=== PATIENT | female | born 1945 | race Caucasian/White ===

== ENCOUNTER → 2018-05-23 15:06 | Outpatient (CLI) | payer MEDICARE, OTHER, SELFPAY | PROVIDERS: Visit Provider Internal Medicine | DX: Z13.820 Encounter for screening for osteoporosis (principal); M85.852 Other specified disorders of bone density and structure, left thigh; Z78.0 Asymptomatic menopausal state | CPT/HCPCS: 77080 ==

== ENCOUNTER → 2018-12-11 14:14 | Outpatient (CLI) | payer MEDICARE, OTHER, SELFPAY ==
--- NOTE | 2018-12-11 | DI.US.S_ITS ---
PROCEDURE: US PELVIC COMPLETE INDICATIONS: UNSPECIFIED OVARIAN CYST, UNSPECIFIED SIDE TECHNIQUE: Real-time scanning was performed of the pelvic organs, with image documentation. Additional endovaginal scanning was necessary due to incomplete visualization of the adnexal and endometrial structures by transabdominal scanning. COMPARISON: None. FINDINGS: Transabdominal scanning: Limited scanning through the kidneys shows no hydronephrosis. No pathologic free abdominal or pelvic fluid. Endovaginal scanning: Uterus: Surgically absent. Ovaries: Right ovary is enlarged and multicystic measuring 4.7 x 3.3 x 3.0 cm. There is wall irregularity and mural nodularity. Doppler assessment demonstrates no internal flow. Left ovary is enlarged measuring 4.0 x 4.0 x 3.2 cm and also multicystic in appearance with mild wall irregularity and knee largest cystic component measuring 3.9 cm. Doppler assessment demonstrates no internal flow. IMPRESSION: Enlarged multicystic ovaries with complex appearance. Underlying neoplasms such as cystadenoma or cystadenocarcinoma cannot be excluded and gynecologic consultation is recommended. If indicated, pre and post contrast gynecologic protocol MRI could be performed for further assessment. Dictated by: Darien ESTRADA Interpreted: Arleen Melchor MD on 12/11/2018 at 16:01 Approved by: Arleen Melchor M.D. on 12/11/2018 at 17:07
== END ==
PROVIDERS: PCP Internal Medicine; Visit Provider Physician Assistant Medical
DX: R10.2 Pelvic and perineal pain (principal); N83.292 Other ovarian cyst, left side; N83.291 Other ovarian cyst, right side; N83.8 Other noninflammatory disorders of ovary, fallopian tube and broad ligament
CPT/HCPCS: 76830; 76856

== ENCOUNTER → 2018-12-12 14:51 | Outpatient (CLI) | payer MEDICARE, OTHER, SELFPAY ==
[2018-12-12 16:31] LABS: Cancer Antigen 125 8 U/mL (0-35)
[2018-12-15 18:10] LABS: Human HE4 Antigen 70 pmol/L
== END ==
PROVIDERS: PCP Internal Medicine; Visit Provider Obstetrics & Gynecology
DX: N83.209 Unspecified ovarian cyst, unspecified side (principal); R19.09 Other intra-abdominal and pelvic swelling, mass and lump
CPT/HCPCS: 36415; 86304; 86305

== ENCOUNTER 2018-12-27 18:07 | Inpatient (IN) | payer MEDICARE, OTHER, SELFPAY ==
[2018-12-27] VITALS (20 sets, daily range): BP systolic 115–155; BP diastolic 57–89; PULSE 70–87; RESP 9–18; TEMP 36.2–37.1; O2SAT 92–100; BMI 25.2
--- NOTE | 2018-12-27 | PATH_ITS ---
[facility] Accession Number: [id number] . 01 Material submitted: . PART A: fallopian tube - LEFT FALLOPIAN TUBE AND OVARY PART B: fallopian tube - RIGHT FALLOPIAN TUBE AND OVARY . 02 Diagnosis: A. 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 Left fallopian tube with no significiant histomorphologic abnormality. . B. Right Fallopian Tube and Ovary, Right Salpingo-oophorectomy: Benign serous cystadenofibroma (5.1 cm in greatest dimension) of the ovary. Right fallopian tube with no significant histomorphologic abnormality. [facility] 12/31/2018 1708 Local . 02 Electronically signed: . Milagros Monterroso MD, Pathologist NPI- [id number] . 01 Gross description: . (A) Received in formalin, labeled left fallopian tube + ovary, is an intact cystic ovary (4.7 x 4.5 x 3.0 cm) and a detached fimbriated fallopian tube (length-2.3 cm, diameter-0.3 cm). The ovary has yellow-pink smooth shiny serosa with a multilocular cut surface. The cavities (0.2 cm-3.5 cm) contain clear yellow fluid. A minimal amount of normal ovarian parenchyma is identified. The fallopian tube has dark maroon smooth shiny serosa and a barakat unremarkable lumen. Section code: (A1, A2) ovary, healthcare representative serial section; (A3) fallopian tube, trisected, entirely submitted; (A4) fimbria, bivalved, entirely submitted. (B) Received in formalin, labeled right fallopian tube + ovary, is an opened cystic ovary (5.1 x 1.8 x 1.6 cm) and a fimbriated fallopian tube segment (length-1.1 cm, diameter-0.4 cm). The ovary has martinez-yellow smooth shiny flat serosa and a multilocular focally solid cut surface. The cavities (0.1 cm-1.5 cm) contain clear yellow fluid and gelatinous material. A minimal amount of normal ovarian parenchyma is identified. The fallopian tube has barakat smooth shiny serosa and a barakat unremarkable lumen. Section code: (B1, B2) ovary, healthcare representative serial sections; (B3) fallopian tube with fimbria, bivalved, entirely submitted. ([id number]) /MRV 12/28/2018 1040 Local . 02 Pathologist provided ICD-10: D27.0, D27.1 . 02 CPT . 713627, [id number] Performed at: 01 [facility] [address] [id number] MD Grzegorz Mckenzie MD Phone: [phone] Performed at: 02 [facility] [address] [place] [id number] MD Trudy Ocasio MD Phone: [phone]
[2018-12-27] MEDS: LACTATED RINGERS 1,000 ML 42 ML IV ×2 (10:46→16:23)
--- NOTE | 2018-12-27 12:45 | PM.HP.1 ---
History of Present Illness History of Present Illness Date Patient Seen: 12/27/18 Time Patient Seen: 12:45 Chief complaint: [id number] Narrative: Patient is a 73-year-old with bilateral ovarian cysts. She is here for laparoscopic bilateral salpingo oophorectomy Patient History Medical History (Updated 12/26/18 @ 12:33 by Zoë Park RN) GERD (gastroesophageal reflux disease) (Acute) Hypercholesterolemia (Acute) Hypertension (Acute) Hypertrophic cardiomyopathy (Acute) Multiple developmental ovarian cysts (Acute) Surgical History (Updated 12/16/18 @ 14:56 by Staci Moreno MD) Status post abdominal hysterectomy (Acute) Status post adenoidectomy (Acute) Status post cholecystectomy (Acute) Status post laparotomy (Acute) Status post tonsillectomy (Acute) Social History household members: spouse Smoking Status: Never smoker Family & Social History Social History: household members spouse Tobacco & Substance use: Smoking Status Never smoker Meds Home Medications and Allergies Home Medications Medication Instructions Recorded Confirmed Type atorvastatin 20 mg tablet 20 mg PO DAILY 12/13/18 12/27/18 History losartan 50 mg tablet 50 mg PO BID tab 12/13/18 12/27/18 History metoprolol succinate 50 mg capsule 50 mg PO BID each 12/13/18 12/27/18 History sprinkle, ext. release 24 hr omeprazole 20 mg capsule,delayed 20 mg PO DAILY PRN 12/13/18 12/27/18 History release ranitidine HCl 150 mg tablet 150 mg PO BEDTIME PRN 12/13/18 12/26/18 History aspirin [Aspir-81] 81 mg PO DAILY 12/27/18 12/27/18 History Allergies Allergy/AdvReac Type Severity Reaction Status Date / Time amoxicillin AdvReac Sweating, Verified 12/13/18 15:21 diarrhea, vomiting Penicillins AdvReac Sweating, Verified 12/13/18 15:21 diarrhea, vomiting Sulfa (Sulfonamide AdvReac Sweating, Verified 12/13/18 15:21 Antibiotics) diarrhea, vomiting Exam Vital Signs (past 8 hours): - 12/27/18 10:30 Temperature 97.1 F L Pulse Rate 86 Respiratory Rate 16 Blood Pressure 150/89 H Pulse Oximetry 100 Oxygen Delivery Method Room Air Narrative Exam Narrative: HEENT: No thyromegaly, no anterior cervical or supraclavicular lymphadenopathy. Lungs:Clear to auscultation bilaterally, no wheezes. Cardiovascular: Regular rate and rhythm, no murmurs, rubs, or gallops. Abdomen: Well-healed right upper quadrant laparoscopy and laparotomy scars. No hepatosplenomegaly. No masses palpable. External genitalia: Atrophic Vagina: Atrophic Cervix: Absent Bimanual exam: Bilateral adnexal fullness and tenderness. Rectal: No masses. Assessment & Plan Assessment & Plan narrative: Assessment: 73-year-old with bilateral ovarian masses Normal CA-125 and HE-4 Plan: Laparoscopic bilateral salpingo oophorectomy The risks, benefits, and alternatives to the procedure were explained to the patient. The risks including bleeding, infection, injury to the bowel, bladder, or ureters. She also understands that there is possibility of an open procedure. A full par Q was held and consent form was signed. Time Spent With Patient Time with patient: 15-24 minutes
--- NOTE | 2018-12-27 12:48 | PM.PREOP ---
Pre-operative Note Interval Note History & Physical reviewed/Exam performed by Physician: Yes Changes to H&P: No
--- NOTE | 2018-12-27 13:37 | SUR.OPER ---
Lithotomy on padded OR bed, head on pillow, arms secured on padded arm boards at <90 degrees abduction. Legs secured in padded yellow fins stirrups.
[2018-12-27] MEDS: BUPIVACAINE 0.5% W/ EPI (PF) VIAL 30 ML INJ (13:45)
[2018-12-27] MEDS: ONDANSETRON 4 MG/2 ML INJ IV (15:39)
[2018-12-27] MEDS: HYDROMORPHONE 2 MG INJ 0.5 MG IV ×2 (15:41→15:49)
[2018-12-27] MEDS: fentaNYL 100 MCG/2 ML INJ 50 MCG IV (15:46)
--- NOTE | 2018-12-27 16:20 | SUR.PHASEI ---
REPORT CALLED TO SYD FRANKS ON ACUTE CARE FLOOR. PT IN STABLE CONDITION, VSS. IV SITE CLEAR AND INFUSING WITHOUT DIFFICULTLY. PT DENIES ANY PAIN OR NAUSEA AT THIS TIME. PT WILL BE TRANSFERRED TO ACUTE CARE FLOOR AT THIS TIME.
[2018-12-27] MEDS: CEFAZOLIN 2 GM/100 ML FROZ.PIGGY IV (16:24)
--- NOTE | 2018-12-27 16:24 | SUR.PHASEI ---
VERBAL ORDER RECEIVED FROM DR. SHOEMAKER TO GIVE PT 2GRAMS IV ANCEF. REVIEWED PT ALLERGIES LISTED WITH DR. SHOEMAKER. PER DR. SHOEMAKER OK TO CONTINUE WITH CURRENT PLAN TO GIVE ANCEF SHE ORDERED.
--- NOTE | 2018-12-27 16:37 | SUR.PHASEI ---
PT TRANSFERRED TO ACUTE CARE FLOOR IN STABLE CONDITION. PT ALERT AND TALKING TO RN DURING TRANSPORT. PT SPOUSE AT BEDSIDE UPON ARRIVAL TO ROOM. BEDSIDE REPORT GIVEN TO SYD FRANKS AT THAT TIME. TRANSFERRED CARE OF PT TO SYD FRANKS.
--- NOTE | 2018-12-27 16:47 | PC.NURSE ---
Julianna shift note: Patient admitted to room 210 S/P Bilateral S & O procedure scheduled by Dr. Moreno. Awake, alert, and pleasant. Received on RA. and friend at bedside providing supportive care. Oriented to room, environment and plan of care.
[2018-12-27] MEDS: LACTATED RINGERS 1,000 ML 100 ML IV (17:41)
[2018-12-27] MEDS: LOSARTAN 50 MG TABLET PO (20:53)
[2018-12-27] MEDS: DOCUSATE 250 MG CAPSULE PO (20:53)
[2018-12-27] MEDS: METOPROLOL ER 50 MG TABLET PO (20:54)
--- NOTE | 2018-12-27 23:46 | PC.NURSE ---
Julianna shift note: Patient output 150 ml this shift, notified Dr. Aldana. New order obtain for 1L bolus NS. Diet advanced to Regular.
[2018-12-28] MEDS: SODIUM CHLORIDE 0.9% 1,000 ML 1000 ML IV (00:53)
[2018-12-28 00:55] VITALS: BP 123/74; PULSE 77; RESP 16; TEMP 36.4; O2SAT 96
[2018-12-28] MEDS: LACTATED RINGERS 1,000 ML 100 ML IV (01:54)
[2018-12-28 05:15] VITALS: BP 128/71; PULSE 76; RESP 16; TEMP 36.8; O2SAT 94
[2018-12-28 06:00] LABS: Add Manual Diff / Slide Review NO; Basophils Absolute Auto 0 /uL (0-100); Eosinophils Absolute Auto 0 /uL (0-450); Hematocrit 33.3 % (36-46); Hemoglobin 11.9 g/dL (12.0-16.0); Lymphocytes Absolute Auto 1000 /uL (1100-4500); Lymphocytes Percent Auto 9.2 % (25-40); Mean Corpuscular HGB Conc 35.6 % (30-36); Mean Corpuscular Hemoglobin 30.4 PG (26-34); Mean Corpuscular Volume 85.1 fL (80-100); Monocytes Absolute Auto 600 /uL (0-900); Monocytes Percent Auto 5.3 % (3-14); Neutrophils Absolute Auto 9300 /uL (1500-7000); Neutrophils Percent Auto 85.5 % (50-75); Platelet Count 200 X10^3/uL (150-400); Red Blood Cell Count 3.91 X10^6/uL (4.0-5.2); Red Cell Distribution Width 12.6 % (11.6-14.8); White Blood Cell Count 10.8 X10^3/uL (4.5-11.0)
--- NOTE | 2018-12-28 06:46 | PC.NURSE ---
Pt VSS, lung sounds clear. Pt had low urine output on evening shift and was given a 1,000ml bolus at 0030, Pt output from spring was 600cc overnight. Pt was switched to general diet. Pt has no complaints of pain, denies nausea.
[2018-12-28 09:00] VITALS: BP 129/73; PULSE 71; RESP 16; TEMP 36.6; O2SAT 96
[2018-12-28] MEDS: LOSARTAN 50 MG TABLET PO (09:00)
[2018-12-28] MEDS: METOPROLOL ER 50 MG TABLET PO (09:00)
[2018-12-28] MEDS: DOCUSATE 250 MG CAPSULE PO (09:01)
[2018-12-28] MEDS: ATORVASTATIN 20 MG TABLET PO (09:01)
--- NOTE | 2018-12-28 10:21 | CM.IDA ---
Initial DCP Assessment Note: Pt is a 73 yo female, resident of [place]. 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 PCP: Jose Rafael Ennis Payer: Medicare/[employer] Met w/pt this morning, explained SW role. Pt awaiting further input from Dr Moreno about medical POC but feels confident that her can support her upon DC home, no barriers to safe return home reported. Home expected upon DC. WENDY Stephens Discharge Planning/Care Management CM Discharge Assessment Start: 12/28/18 10:20 Freq: Status: Active Protocol: Document 12/28/18 10:20 CHUCHO (Rec: 12/28/18 10:21 CHUCHO [id number]) Discharge Planning Assessment Assigned Medical Practitioners WENDY Humphries DPOA/Assigned Designee Name Isidoro Portillo Contact Information [phone] Advance Directives? Yes History Provided By Patient Household Members spouse Independent with ADL's Yes Is patient alert and oriented? Yes Barriers to Discharge No Discharge Plan Home Transportation Arrangement Family Referrals Initiated None needed Review Status In Process
--- NOTE | 2018-12-28 11:38 | PC.NURSE ---
Day shift: Pt has voided 2 times post Burris removal.
[2018-12-28] MEDS: ACETAMINOPHEN 325 MG TABLET 650 MG PO (12:03)
--- NOTE | 2018-12-28 13:33 | PC.NURSE ---
Day shift: Pt left unit at approx 1330 in WC by this justowriter operator to private car driven by Pt's spouse. Paperwork signed and all questions answered. Pt has scrips. Pt has all personal belongings.
--- NOTE | 2018-12-28 15:38 | P.OP_ITS ---
Operative Date/Time/Diagnoses Date of procedure: 12/27/18 Time of procedure: 15:30 Pre-op diagnosis: Bilateral ovarian masses Post-op diagnosis: same Procedure & Clinicians Procedure: Procedures Operation Date: 12/27/18 11:45 Actual Procedures Side Surgeon p Laparoscopic Oophorectomy Salpingoophorectomy, LYSIS OF ADHESIONS, CONVERTED TO OPEN Bilateral Staci Moreno MD Indications: Bilateral ovarian masses Surgeon: Staci Moreno Service Desk Associate: Irina Young Anesthesia Type: General Operative Notes Findings: 5 cm complex ovarian cyst on the right encased in omentum 3 cm complex ovarian cyst on the left stuck to the left sidewall Small bowel and omental adhesions in the right lower quadrant Omental to vaginal cuff adhesions Omental to anterior abdominal wall adhesions above the umbilicus on the right side Closure Type: primary Specimen(s): left tube & ovary and right tube & ovary Applied: catheter Estimated blood loss (mL): 150 Blood products transfused: none Procedure in detail: After informed consent was obtained, the patient was taken to the operating room where she was placed in the dorsal supine position. After adequate general endotracheal anesthesia was achieved, she was placed in the dorsal lithotomy position, and prepped and draped in the usual sterile fashion. A time-out was performed. A moistened sponge stick was placed into the vagina. Attention was then turned to the abdomen where 6 cc of 0.5% Marcaine with epinephrine were injected in the umbilical fold. A 5 mm incision was made. The Veress needle was placed into the peritoneal cavity, and its placement confirmed by aspiration and drop test. The abdominal cavity was insufflated with 3.8 L of CO2. The Veress needle was removed, and a 5 mm trocar was placed without difficulty. A 2nd incision was made midway between the pubic symphysis and umbilicus on the left side after 6 cc of 0.5% Marcaine with epinephrine were injected. A 2nd 5 mm trocar was placed under direct visualization. The pelvis and abdomen were examined with the findings noted above. A 3rd incision was made through the previous Pfannenstiel incision after 6 cc of 0.5% Marcaine with epinephrine were injected. This was a 12 mm incision. A 12 mm trocar was placed under direct visualization. Blunt dissection was performed taking the omentum off of the ovaries bilaterally and off of the vaginal cuff. Also the Endo Colton were used to take down filmy adhesions between the bowel and left adnexa as well as between the omentum and the vaginal cuff. At one point the small bowel was found to be in the omentum and attached to the right lower quadrant. A decision was made to proceed with an open procedure to safely remove both tubes and ovaries. The instruments were removed from the abdomen. The trocars were removed. The previous Pfannenstiel incision was excised in an elliptical fashion. The incision was carried down to the fascia. The fascia was nicked in the midline. The incision was extended bilaterally with the Wilks scissors. The superior aspect of the fascial incision was grasped with a Joe clamp, elevated, and the underlying rectus muscles dissected off sharply and bluntly. This was repeated on the lower edge of the incision. The peritoneum was grasped between 2 hemostats and entered sharply with the Metzenbaum scissors. This incision was extended superiorly and inferiorly with good visualization of the bladder. The O'Asa O'Jovel retractor was placed into the incision, and the bladder blade was placed. Adhesions were taken down sharply with the Metzenbaum scissors so that the bowel could be packed away with moist lap sponges. The left ovary was identified and a lot of the adhesions were taken down bluntly. Some of them were taken down using the Metzenbaum scissors. The infundibulopelvic ligament on the left side was identified well above the ureter. The ligament was doubly clamped, transected, free tied with 0 Vicryl and then suture ligated with 0 Vicryl. Hemostasis was achieved. On the right side there was omentum attached to the right ovary and tube. This was taken down sharply with the Metzenbaum scissors as well as bluntly. Hemostasis was achieved. Once the ovary and tube were freed, the infundibulopelvic ligament on the right side was clamped, transected, free tied with 0 Vicryl and then suture ligated with 0 Vicryl. There was a small amount of bleeding noted from the peritoneal edge and a suture of 2 0 Vicryl was placed for hemostasis with care to avoid the ureter. Both ureters were visualized and were found to be peristalsing. The remainder of the adhesions were taken down between the omentum and the vaginal cuff using the Metzenbaum scissors. Hemostasis was achieved. The pelvis was copiously irrigated with warm normal saline. There was no bleeding noted. The lap sponges were removed from the abdomen. The O'Asa O'Jovel retractor was removed from the incision. The peritoneum was closed with 2 0 Vicryl in a running fashion. The fascia was closed with 0 Vicryl in a running fashion. The subcutaneous layer was copiously irrigated with warm normal saline. 7 simple interrupted sutures with 3 0 Vicryl were plac ed in the subcutaneous layer. The skin was closed with 4 0 Biosyn in a subcuticular fashion. Steri-Strips and an Aquacel dressing were placed. The other 2 laparoscopy incisions were closed with 4 0 Biosyn in a subcuticular fashion. Steri-Strips, 2 x 2, and op site were placed. The moistened sponge stick was removed from the vagina. Sponge, lap, and instrument counts were correct x2. The patient tolerated the procedure well, and was taken to PACU in stable condition. Complications: none Post-operative Condition: stable Disposition: PACU Plan for aftercare: To Acute Care after recovery
--- NOTE | 2018-12-29 12:32 | P.DS_ITS ---
History of Present Illness History of Present Illness Date Patient Seen: 12/29/18 Time Patient Seen: 11:45 Chief complaint: [id number] Narrative: Patient is a 73-year-old with bilateral ovarian cysts. She is here for laparoscopic bilateral salpingo oophorectomy Discharge Providers Provider Date of admission: 12/27/18 18:07 Discharge Date: 12/28/18 Primary care physician: Jose Rafael Ennis MD Discharge provider: Staci Moreno MD Summary Hospital Course Discharge Diagnosis: Bilateral ovarian masses Significant abdominal/pelvic adhesions Omental to anterior abdominal wall adhesion Omental to vaginal cuff adhesions Omental to right adnexal adhesions Hospital Course: Patient is a 73-year-old who presented for a laparoscopic bilateral salpingo oophorectomy on 12/27/2018. Due to the dense pelvic ad hesions she underwent a laparotomy with bilateral salpingo oophorectomy and extensive lysis of adhesions. On postop day # 1 she was tolerating a diet, ambulating, voiding without the catheter, pain well controlled, and without nausea or vomiting. Her desire was to go home. Status at Discharge Cognitive/behavioral status at discharge: oriented Functional status at discharge: independent ambulation Overall status at discharge: patient is progressing back to baseline Time Spent with Patient Time spent: Less than 30 minutes Exam Vital Signs (past 8 hours): Oxygen Delivery Method Room Air Oxygen Flow Rate 0 Narrative Exam Narrative: Generally: A well-developed, well-nourished female, no acute distress Lungs: Clear to auscultation bilaterally Cardiovascular: Regular rate and rhythm Abdomen: Soft, flat, good bowel sounds in all 4 quadrants Incision: Clean dry and intact with Aquacel dressing Extremities: Negative Homans, no edema Objective Labs Result Diagrams: 12/28/18 05:37 Discharge Plan Discharge Plan Patient Disposition: Home Discharge comment: Call with fever, chills, or redness or drainage around the incision Discharge Med Rec/Prescriptions Prescriptions: New oxycodone-acetaminophen [Percocet] 5-325 mg tablet 1 tab PO Q4-6H PRN (Reason: pain) Qty: 30 RF: 0 Continued metoprolol succinate 50 mg capsule,sprinkle,ER 24hr 50 mg PO BID RF: 0 losartan 50 mg tablet 50 mg PO BID RF: 0 ranitidine HCl [Acid Control (ranitidine)] 150 mg tablet 150 mg PO BEDTIME PRN (Reason: GERD) RF: 0 omeprazole 20 mg capsule,delayed release(DR/EC) 20 mg PO DAILY PRN (Reason: GERD) RF: 0 atorvastatin 20 mg tablet 20 mg PO DAILY RF: 0 Discontinued aspirin [Aspir-81] 81 mg Tablet,Delayed Release (Dr/Ec) 81 mg PO DAILY RF: 0 Follow up/Referrals: Staci Moreno MD [Physician] - 01/03/19 2:15 pm Provider Discharge Instructions Diet: Regular Activity: No heavy lifting Skin/Wound/Dressing Care Report to your healthcare provider any signs of infection, such as:: chills, fever, increased pain, unusual drainage and unusual redness Dressing: Do not remove Visit Report/Discharge Packet Instructions: DI for Oophorectomy, DI Following Your Exploratory Laparotomy, DI for Laparoscopy, Oxycodone/Acetaminophen (By mouth) Stand Alone Forms: Surgery Discharge Discharge Data Primary Care Provider: Jose Rafael Ennis Discharges patient from system. Discharge Date/Time: 12/28/18 13:34
== END 2018-12-28 13:34 | disposition home or self-care (01) | DRG 743 ==
LOC: OR 18:17
PROVIDERS: Admitting Provider Obstetrics & Gynecology; PCP Internal Medicine; Visit Provider Obstetrics & Gynecology
PROC: 0UT24ZZ Resection of Bilateral Ovaries, Percutaneous Endoscopic Approach (ICD-10-PCS; CPT 58661; 2018-12-27 11:45)
DX: N83.202 Unspecified ovarian cyst, left side (principal); N83.201 Unspecified ovarian cyst, right side; K21.9 Gastro-esophageal reflux disease without esophagitis; I10 Essential (primary) hypertension; K66.0 Peritoneal adhesions (postprocedural) (postinfection)
CPT/HCPCS: 36415; 58720; 85025; 94762; J0690; J1100; J1170; J1885; J2405; J2704; J3010

== ENCOUNTER → 2019-09-12 11:28 | Outpatient (CLI) | payer MEDICARE, OTHER, SELFPAY ==
[2018-12-27 17:29] VITALS: BMI 25.2
[2019-09-12 12:03] LABS: BUN Creatinine Ratio 11.5 (6-22); Blood Urea Nitrogen 11 mg/dL (7-17); Estimated Glomerular Filt Rate 56.7 mL/min (>60)
--- NOTE | 2019-09-12 12:29 | DI.CT.S_ITS ---
PROCEDURE: CT ABDOMEN PELVIS W CON INDICATIONS: Unspecified abdominal pain TECHNIQUE: After the administration of oral and intravenous contrast, 5 mm thick sections acquired from the diaphragms to the symphysis. 5 mm thick coronal and sagittal reformats were performed. For radiation dose reduction, the following was used: automated exposure control, adjustment of mA and/or kV according to patient size. COMPARISON: None. FINDINGS: Image quality: Excellent. ABDOMEN: Lung bases: Lung bases are clear. Heart size is normal. Solid organs: Liver is normal in size and enhancement. Gallbladder has been previously resected. Biliary system is non-dilated. Pancreas enhances normally. Spleen is normal in size and enhancement. No adrenal nodules. Kidneys are normal in size and enhancement, without hydronephrosis. Peritoneum and bowel: Stomach, small bowel, and colon loops are normal in caliber and wall thickness. No free fluid or air. Nodes and vessels: No retroperitoneal or mesenteric adenopathy. Aorta and inferior vena cava are normal in caliber. Miscellaneous: No ventral hernias. PELVIS: Genitourinary: Bladder wall thickness is normal. Miscellaneous: No inguinal hernias or adenopathy. Sigmoid diverticulosis, no acute diverticulitis. The note is made of a single gas bubble within the bladder lumen, exact etiology uncertain. Bones: No suspicious bony lesions. No vertebral body compression fractures. IMPRESSION: Incidental note made of a single gas bubble small in size within the bladder lumen, but no sign of adjacent acute diverticulitis or other source of fistulous communication to the bladder lumen. Mild sigmoid diverticulosis. Throughout the abdomen and pelvis no underlying infection or neoplasm is seen. Prior hysterectomy, ovaries not visualized bilaterally. No abnormal inflammatory change seen throughout the peritoneal space. Dictated by: Marco A Frye M.D. on 09/12/2019 at 15:12 Approved by: Marco A Frye M.D. on 09/12/2019 at 15:15
== END ==
PROVIDERS: PCP Internal Medicine; Referring Provider Physician Assistant Medical; Visit Provider Physician Assistant Medical
DX: R10.30 Lower abdominal pain, unspecified (principal); K57.30 Diverticulosis of large intestine without perforation or abscess without bleeding; Z90.49 Acquired absence of other specified parts of digestive tract; Z90.710 Acquired absence of both cervix and uterus
CPT/HCPCS: 36415; 74177; 82565; 84520; Q9967

== ENCOUNTER → 2019-11-24 09:06 | Outpatient (CLI) | payer MEDICARE, OTHER, SELFPAY ==
[2018-12-27 17:29] VITALS: BMI 25.2
[2019-11-26 12:06] LABS: COVID19 Sendout Not detected (Not Detect)
== END ==
PROVIDERS: PCP Internal Medicine; Visit Provider Physician Assistant
DX: Z11.59 Encounter for screening for other viral diseases (principal)
CPT/HCPCS: 87635

== ENCOUNTER 2019-11-27 10:07 | Day surgery (SDC) | payer MEDICARE, OTHER, SELFPAY ==
[2018-12-27 17:29] VITALS: BMI 25.2
[2019-11-27] VITALS (8 sets, daily range): BP systolic 83–132; BP diastolic 51–84; PULSE 71–84; RESP 12–22; TEMP 36.1–36.6; O2SAT 97–100; BMI 24.6
--- NOTE | 2019-11-27 | PATH_ITS ---
[facility] Accession Number: [id number] . 01 Material submitted: . PART A: colon - HEPATIC POLYP PART B: colon - LEFT COLON POLYP PART C: colon - 30CM ABNORMALITY OF COLON . 02 Diagnosis: A. Colon, Hepatic Flexure Polyp, Biopsy: Tubular adenoma. . B. Left Colon Polyp, Biopsy: Traditional serrated adenoma. Negative for high-grade dysplasia or malignancy. . C. Colon at 30 cm, Biopsy: Colonic mucosa with no diagnostic abnormality. Negative for active, chronic, and microscopic colitis. Negative for dysplasia and malignancy. . [facility] 11/29/2019 1053 Local . 02 Comment: B. A traditional serrated adenoma is considered an advanced adenoma. As such, assurance of complete removal of the lesion and a shortened surveillance interval are recommended. . 02 Electronically signed: . Thad Hayward MD, PhD, Pathologist NPI- [id number] . 01 Gross description: . A. Received in formalin, labeled hepatic polyp biopsy, and consists of a 0.3 x 0.3 x 0.2 cm barakat fragment of soft tissue, which is entirely submitted in cassette A1. B. Received in formalin, labeled left colon polyp biopsy, and consists of a 0.3 x 0.2 x 0.2 cm barakat fragment of soft tissue, which is entirely submitted in cassette B1. C. Received in formalin, labeled 30 cm abnormality biopsy of colon, and consists of multiple barakat fragments of barakat tissue measuring 1.0 x 0.7 x 0.2 cm in aggregate. The specimen is entirely submitted in cassette C1. ([id number]) /[facility] 11/28/2019 1053 Local . 02 Pathologist provided ICD-10: R10.32, D12.3, D12.6 . 02 CPT . 077163, 478479, 189224 Performed at: 01 [facility] [address] [place] [address], [place], [place] [id number] MD Grzegorz Mckenzie MD Phone: [phone] Performed at: 02 [facility] [place] [address] [place], [place] [id number] MD Trudy Ocasio MD Phone: [phone]
[2019-11-27] MEDS: SODIUM CHLORIDE 0.9% 1,000 ML 21 ML IV (10:42)
[2019-11-27] MEDS: fentaNYL 250 MCG/5 ML INJ IV (11:03)
--- NOTE | 2019-11-27 11:04 | PM.HP.1 ---
History of Present Illness History of Present Illness Date Patient Seen: 11/27/19 Chief complaint: SDC Narrative: Left lower quadrant pain and constipation Patient History Medical History (Updated 12/26/18 @ 12:33 by Zoë Park RN) GERD (gastroesophageal reflux disease) (Acute) Hypercholesterolemia (Acute) Hypertension (Acute) Hypertrophic cardiomyopathy (Acute) Multiple developmental ovarian cysts (Acute) Surgical History (Updated 12/16/18 @ 14:56 by Staci Moreno MD) Status post abdominal hysterectomy (Acute) Status post adenoidectomy (Acute) Status post cholecystectomy (Acute) Status post laparotomy (Acute) Status post tonsillectomy (Acute) Family & Social History Social History: household members spouse Tobacco & Substance use: Smoking Status Never smoker alcohol intake current alcohol intake frequency holiday/special occasion Substance Use Type does not use Meds Home Medications and Allergies Home Medications Medication Instructions Recorded Confirmed Type atorvastatin 20 mg tablet 40 mg PO DAILY 12/13/18 11/27/19 History losartan 50 mg tablet 50 mg PO BID tab 12/13/18 11/27/19 History metoprolol succinate 50 mg capsule 50 mg PO BID each 12/13/18 11/27/19 History sprinkle, ext. release 24 hr omeprazole 20 mg capsule,delayed 20 mg PO DAILY PRN 12/13/18 11/27/19 History release acetaminophen 500 mg tablet 1,000 mg PO Q6H PRN 01/03/19 11/27/19 History nystatin 100,000 unit/gram topical 1 applictn TOP BID #30 gram 02/06/19 11/27/19 Rx ointment Allergies Allergy/AdvReac Type Severity Reaction Status Date / Time amoxicillin AdvReac Sweating, Verified 11/27/19 10:21 diarrhea, vomiting Penicillins AdvReac Sweating, Verified 11/27/19 10:21 diarrhea, vomiting Sulfa (Sulfonamide AdvReac Sweating, Verified 11/27/19 10:21 Antibiotics) diarrhea, vomiting Exam Vital Signs (past 8 hours): - 11/27/19 10:27 Temperature 97.0 F L Pulse Rate 84 Respiratory Rate 18 Blood Pressure 132/84 Pulse Oximetry 98 Oxygen Delivery Method Room Air Narrative Exam Narrative: Oropharynx free of lesions Chest clear to auscultation percussion Cardiac exam reveals no S3 or murmur Abdomen reveals some tenderness over the sigmoid colon which is barely palpable. She states that her pain is much better today now that she is ?cleaned out? Assessment & Plan Assessment & Plan narrative: Left lower quadrant pain and constipation with possible subclinical history of diverticulitis. Need for colorectal cancer screening and evaluate the sigmoid colon. Risks, benefits, alternatives have been explained.
[2019-11-27] MEDS: MIDAZOLAM 5 MG/5 ML VIAL IV (11:13)
--- NOTE | 2019-11-27 11:30 | PM.OP.ENDO ---
Operative Date/Time/Diagnoses Date of procedure: 11/27/19 Pre-op diagnosis: See indication and findings Procedure & Clinicians Study performed: Colonoscopy Same procedure as scheduled: Yes Indications: Constipation left lower quadrant pain and colorectal cancer screening Surgeon: Anand Main Procedure Notes Procedure in detail: After informed consent was obtained the patient was placed in the left lateral decubitus position. The video colonoscope was introduced the rectum slowly advanced to cecum. Sigmoid colon was particularly difficult to navigate being adhesed and with a small lumen. Preparation was good. On slow withdrawal mucosa was carefully examined. The scope was removed. The patient tolerated procedure well. Blood loss none Complications none Sedation Total sedation time 25 minutes Versed 4 mg fentanyl 100 mg IV titration Findings 1. Very small 1-2 mm polyp at the hepatic flexure Jumbo biopsy removed completely 2. 5 mm polyp in left colon at 50 cm Jumbo biopsy removed completely 3. Extensive diverticulosis throughout the colon but particularly in the sigmoid mostly small to medium-sized. 4. At 30 cm there was a nodularity and firmness on 1 wall but not clearly neoplasia. This was biopsied several times a Jumbo biopsy forceps. I suspect this might be some focal diverticulitis. This a recall in 3 years but mostly will follow up on this biopsy a 30 cm. With her constipation she will continue her Linzess and MiraLax, doubling up on the MiraLax if need be. She will return to see me for Tylenol visit in 1 month.
== END 2019-11-27 12:32 | disposition home or self-care (01) ==
PROVIDERS: PCP Internal Medicine; Referring Provider Internal Medicine; Visit Provider Internal Medicine Gastroenterology
PROC: 0DJD8ZZ Inspection of Lower Intestinal Tract, Via Natural or Artificial Opening Endoscopic (ICD-10-PCS; CPT 45378; principal; 2019-11-27 11:30)
DX: K57.30 Diverticulosis of large intestine without perforation or abscess without bleeding (principal); K59.00 Constipation, unspecified; K21.9 Gastro-esophageal reflux disease without esophagitis; D12.3 Benign neoplasm of transverse colon; D12.6 Benign neoplasm of colon, unspecified
CPT/HCPCS: 45380; J2250; J3010

== ENCOUNTER → 2020-03-12 11:03 | Outpatient (CLI) | payer MEDICARE, OTHER, SELFPAY ==
[2018-12-27 17:29] VITALS: BMI 25.2
--- NOTE | 2020-03-12 11:06 | DI.MRI.S_ITS ---
PROCEDURE: MR BRAIN (IAC) WWO CON INDICATIONS: Sudden idiopathic hearing loss, left ear TECHNIQUE: Noncontrast sagittal T1 spin echo, axial FLAIR, axial gradient echo, axial diffusion and ADC through the brain. Axial thin-slice 3D CISS, coronal TruFISP, axial T1 spin echo with fat saturation through the internal auditory canals. After the administration of contrast, thin slice axial and coronal T1 spin echo with fat saturation through the internal auditory canals, and axial T1 spin echo with fat saturation through the brain. COMPARISON: None. FINDINGS: Image quality: Excellent. Cranial nerves: No cerebellopontine angle masses. Visualized cranial nerves demonstrate no areas of abnormal enhancement, signal or mass lesion. CSF spaces: Ventricles are normal in size and shape. No extra-axial fluid collections. Basal cisterns are patent. Brain: No intracranial bleeds or mass effects. Cam-white matter interface is intact. No abnormal intracranial enhancement. Diffusion weighted images demonstrate no acute ischemic insults. Brainstem appears normal. Normal intravascular flow voids are present. Skull and face: Calvarial marrow signal is normal. Orbits appear normal. Sinuses: Sinuses and mastoids are clear. IMPRESSION: 1. No acute intracranial process. 2. Visualized cranial nerves demonstrate no areas of abnormal signal, enhancement or mass lesion. Dictated by: Arleen Melchor M.D. on 03/12/2020 at 12:34 Approved by: Arleen Melchor M.D. on 03/12/2020 at 12:47
== END ==
PROVIDERS: PCP Internal Medicine; Referring Provider Otolaryngology; Visit Provider Otolaryngology
DX: H91.22 Sudden idiopathic hearing loss, left ear (principal)
CPT/HCPCS: 70553

== ENCOUNTER → 2021-06-21 12:18 | Outpatient (CLI) | payer MEDICARE, OTHER, SELFPAY ==
[2018-12-27 17:29] VITALS: BMI 25.2
[2021-06-21 14:13] LABS: Iron 65 ug/dL (37-170)
[2021-06-21 14:46] LABS: Thyroid Stimulating Hormone 0.185 uIU/mL (0.47-4.68)
[2021-06-21 15:20] LABS: Folate > 20.0 ng/mL (2.76-20.0); Vitamin B12 > 1000 pg/mL (239-931)
[2021-06-23 22:24] LABS: SS A Ro Sjogrens Antibody < 0.2 AI (0.0-0.9); SS B La Sjogrens Antibody < 0.2 AI (0.0-0.9)
== END ==
PROVIDERS: PCP Internal Medicine; Referring Provider Dentist; Visit Provider Dentist
DX: K14.6 Glossodynia (principal); R68.2 Dry mouth, unspecified
CPT/HCPCS: 36415; 82607; 82746; 83540; 84436; 84443; 86235

== ENCOUNTER → 2022-07-15 09:50 | Outpatient (CLI) | payer MEDICARE, OTHER, SELFPAY ==
[2018-12-27 17:29] VITALS: BMI 25.2
--- NOTE | 2022-07-15 10:11 | DI.DEXA.S_ITS ---
Bone Density Report Name: SHILPI CORTEZ Age: 76 Sex: Female Ethnicity: White Date of : 1945 Indication: osteopenia; Referring Provider: CATA PICKETT Study: Bone densitometry was performed. Exam Date: July 15, 2022 Accession number: [id number] Bone Density: Region BMD T-score Z-score Classification AP Spine(L1-L4) 1.027 -0.2 2.4 Normal Femoral Neck (Left) 0.617 -2.1 0.2 Osteopenia Total Hip (Left) 0.737 -1.7 0.3 Osteopenia Femoral Neck (Right) 0.629 -2.0 0.3 Osteopenia Total Hip (Right) 0.730 -1.7 0.2 Osteopenia Total Hip Mean 0.734 -1.7 0.3 Osteopenia World Health Organization criteria for BMD impression classify patients as: Normal (T-score at or above -1.0), Osteopenia (T-score between -1.0 and -2.5), or Osteoporosis (T-score at or below -2.5). 10-year Fracture Risk(1): Major Osteoporotic Fracture 15% Hip Fracture 4.3% Reported Risk Factors: [place] (), Neck BMD=0.617, BMI=23.0 (1) FRAX(R) Version 3.08. Fracture probability calculated for an untreated patient. Fracture probability may be lower if the patient has received treatment. Previous Exams: -- Region Exam Age BMD T-score BMD Change BMD Change Date g/cm2 vs Baseline vs Previous -- AP Spine (L1-L4) 07/15/2022 76 1.027 -0.2 0.038 (3.9%)# 0.038 (3.9%)# 05/23/2018 72 0.988 -0.5 Total Hip(Left) 07/15/2022 76 0.737 -1.7 0.043 (6.3%)# 0.043 (6.3%)# 05/23/2018 72 0.694 -2.0 Total Hip(Right) 07/15/2022 76 0.730 -1.7 -0.013 (-1.7%)# -0.013 (-1.7%)# 05/23/2018 72 0.743 -1.6 -- *Denotes significance at 95% confidence level, LSC for AP Spine = 0.022 g/cm2, LSC for Total Hip = 0.027 g/cm2 # Denotes dissimilar scan types or analysis methods Impression: The patient has low bone mass, based on the Left Femoral Neck T-score. The patient has an estimated ten-year risk of hip fracture of 4.3% and an estimated ten-year risk of major fracture of 15%, based on the WHO FRAX algorithm. No significant bone loss was observed. Discussion: BONE DENSITY IS LOW AT ONE OR MORE SKELETAL SITES. THE PATIENT'S BMD AND CLINICAL RISK FACTORS CONTRIBUTE TO THIS PATIENT'S INCREASED RISK OF FRACTURE. This patient's lowest T-score is low at one or more skeletal sites. It meets the World Health Organization's (WHO) criteria for ?low bone mass? (T-score between -1.0 and -2.5). The patient's 10-year risk of hip fracture as calculated by FRAX exceeds the threshold where pharmacological therapy is recommended by the National Osteoporosis Foundation (NOF). However, all treatment decisions require clinical judgment and consideration of individual patient factors, including patient preferences, comorbidities, previous drug use, risk factors not captured in the FRAX model (e.g., frailty, falls, vitamin D deficiency, increased bone turnover, interval significant decline in bone density) and possible under or overestimation of fracture risk by FRAX. The patient should follow a healthful lifestyle (good nutrition with adequate calcium and vitamin D, and appropriate weight-bearing exercise). Follow-Up: Consider a repeat BMD and Vertebral Fracture Assessment (VFA) exam in 2 years or sooner if medically necessary, to reassess this patient's status. Reported by: THERESA CONSTANTINO MD on 07/15/2022 10:17:00 AM.
== END ==
PROVIDERS: PCP Student in an Organized Health Care Education/Training Program; Referring Provider Student in an Organized Health Care Education/Training Program; Visit Provider Student in an Organized Health Care Education/Training Program
DX: M85.852 Other specified disorders of bone density and structure, left thigh (principal); Z78.0 Asymptomatic menopausal state; Z92.23 Personal history of estrogen therapy; Z90.710 Acquired absence of both cervix and uterus
CPT/HCPCS: 77080

== ENCOUNTER → 2022-07-29 11:53 | Outpatient (CLI) | payer MEDICARE, OTHER, SELFPAY ==
[2018-12-27 17:29] VITALS: BMI 25.2
--- NOTE | 2022-07-29 | DI.RAD.S_ITS ---
PROCEDURE: XR LUMBAR SPINE 2-3V INDICATIONS: low back pain TECHNIQUE: 3 views of the lumbar spine were acquired. COMPARISON: [facility], CT, CT ABDOMEN PELVIS W CON, 09/12/2019, 12:43. FINDINGS: Bones: 5 [id number] vertebrae are present. S shaped curvature thoracolumbar spine, left curve centered at T11-T12, right curve at L4-L5. 2 mm retrolisthesis L2 on L3. No lumbar compression fracture identified. Moderate-severe multilevel degenerative changes with disc height loss, endplate spurring, and facet arthropathy. Soft tissues: Overlying bowel gas pattern is normal. Vascular calcifications are present. IMPRESSION: Multilevel degenerative changes of the lumbar spine. Dictated by: Seth Buenrostro M.D. on 07/29/2022 at 17:10 Approved by: Seth Buenrostro M.D. on 07/29/2022 at 17:13
== END ==
PROVIDERS: PCP Student in an Organized Health Care Education/Training Program; Referring Provider Student in an Organized Health Care Education/Training Program; Visit Provider Student in an Organized Health Care Education/Training Program
DX: M54.50 Low back pain, unspecified (principal); M47.816 Spondylosis without myelopathy or radiculopathy, lumbar region
CPT/HCPCS: 72100

== ENCOUNTER → 2023-08-04 10:35 | Outpatient (CLI) | payer MEDICARE, OTHER, SELFPAY ==
[2018-12-27 17:29] VITALS: BMI 25.2
--- NOTE | 2023-08-04 10:36 | DI.CT.S_ITS ---
PROCEDURE: CT LUMBAR SPINE WO CON INDICATIONS: Low back pain, unspecified TECHNIQUE: Noncontrast 3 mm thick sections acquired from the T12 level to the sacrum. Sagittal and coronal reformats were constructed. For radiation dose reduction, the following was used: automated exposure control. COMPARISON: None. FINDINGS: Image quality: Excellent. Bones: Mild levocurvature of the upper lumbar spine. Multilevel degenerative changes with interval disc height loss, vacuum disc phenomenon, degenerative endplate changes with osteophytosis. Facet arthropathy, most pronounced at L4-5 and L5-S1. L5 vertebral body hemangioma. Diffusely decreased osseous mineralization. There is at least moderate central canal stenosis L3-L4 and moderate to severe central canal stenosis L4-5. Multilevel osseous neural foraminal stenosis, most pronounced L5-S1 with severe bilateral stenosis. No acute vertebral body compression fractures. No suspicious lytic or blastic bony lesions. No pars defects. Soft tissues: No retroperitoneal masses or hematomas. Visualized aorta is normal in caliber. Atherosclerotic vascular calcifications. Moderate hiatal hernia. Diverticulosis within the visualized colon without diverticulitis. Cholecystectomy. IMPRESSION: Multilevel degenerative changes of the lumbar spine as described above. Probable moderate to severe central canal stenosis at L4-5. Severe bilateral osseous neural foraminal stenosis L5-S1. Consider MRI for further evaluation as clinically indicated. Dictated by: Otilio Aldrich M.D. on 08/04/2023 at 14:14 Approved by: Otilio Aldrich M.D. on 08/04/2023 at 14:20
== END ==
LOC: CT 10:36
PROVIDERS: PCP Student in an Organized Health Care Education/Training Program; Referring Provider Orthopaedic Surgery Orthopaedic Surgery of the Spine; Visit Provider Orthopaedic Surgery Orthopaedic Surgery of the Spine
DX: M47.816 Spondylosis without myelopathy or radiculopathy, lumbar region (principal); M47.817 Spondylosis without myelopathy or radiculopathy, lumbosacral region; M48.061 Spinal stenosis, lumbar region without neurogenic claudication; M48.07 Spinal stenosis, lumbosacral region; M54.50 Low back pain, unspecified
CPT/HCPCS: 72131

== ENCOUNTER 2023-11-01 07:55 | Day surgery (SDC) | payer MEDICARE, OTHER, SELFPAY ==
[2018-12-27 17:29] VITALS: BMI 25.2
[2023-11-01] MEDS: LACTATED RINGERS 1,000 ML 42 ML IV (08:29)
[2023-11-01 08:30] VITALS: BP 120/74; PULSE 82; RESP 17; TEMP 36.6; O2SAT 100
--- NOTE | 2023-11-01 08:33 | PM.HP.1 ---
History of Present Illness History of Present Illness Date Patient Seen: 11/01/23 Chief complaint: SDC Narrative: History of colon polyps need for follow-up colonoscopy [facility] Medical History (Updated 12/26/18 @ 12:33 by Zoë Park RN) Multiple developmental ovarian cysts Hypertrophic cardiomyopathy Hypercholesterolemia Hypertension GERD (gastroesophageal reflux disease) Surgical History (Updated 12/16/18 @ 14:56 by Staci Moreno MD) Status post laparotomy Status post abdominal hysterectomy Status post cholecystectomy Status post adenoidectomy Status post tonsillectomy Social History household members: spouse Smoking Status: Never smoker alcohol intake: current Meds Home Medications and Allergies Home Medications Medication Instructions Recorded Confirmed Type atorvastatin 20 mg tablet 40 mg PO DAILY 12/13/18 11/01/23 History losartan 50 mg tablet 50 mg PO BID 12/13/18 11/01/23 History metoprolol succinate 50 mg capsule 50 mg PO BID 12/13/18 11/01/23 History sprinkle, ext. release 24 hr acetaminophen 500 mg tablet 1,000 mg PO Q6H PRN Pain (Scale 01/03/19 11/01/23 History (Tylenol Extra Strength) Score 1-3) aspirin 81 mg capsule 81 mg PO DAILY 11/01/23 11/01/23 History Allergies Allergy/AdvReac Type Severity Reaction Status Date / Time amoxicillin AdvReac Sweating, Verified 11/01/23 08:20 diarrhea, vomiting Penicillins AdvReac Sweating, Verified 11/01/23 08:20 diarrhea, vomiting Sulfa (Sulfonamide AdvReac Sweating, Verified 11/01/23 08:20 Antibiotics) diarrhea, vomiting Exam Vital Signs (past 8 hours): - 11/01/23 08:30 Temperature 97.8 F Pulse Rate 82 Respiratory Rate 17 Blood Pressure 120/74 Pulse Oximetry 100 Oxygen Delivery Method Room Air Oxygen Delivery Method Room Air Narrative Exam Narrative: Oropharynx free of lesions Chest clear to auscultation percussion Cardiac exam reveals no S3 or murmur Assessment & Plan Assessment & Plan narrative: History of colon polyps need for follow-up colonoscopy. Risks, benefits, alternatives have been explained. This should be the final colonoscopy for this patient. Time-Based Coding :: [TOTAL MINUTES] spent with patient and on the chart (including review of chart, obtaining history, exam, reviewing outside data, placing orders, documenting exam and treatment plan, and counseling patient) on [DATE].
--- NOTE | 2023-11-01 08:34 | PM.OP.COLON ---
Operative Date/Time/Diagnoses Date of procedure: 11/01/23 Pre-op diagnosis: See indication and findings Procedure & Clinicians Study performed: Colonoscopy Indications: History of polyps Surgeon: Anand Main Procedure Notes Procedure in detail: After informed consent was obtained patient was placed in left lateral decubitus position. The video colonoscope was introduced the rectum slowly advanced to the cecum. Preparation was good. On slow withdrawal mucosa was carefully examined. The scope was removed. The patient tolerated procedure well. Blood loss none Complications none Sedation mac Findings 1. Extensive sigmoid diverticulosis 2. Otherwise negative colonoscopy to cecum This should be the patient's last colonoscopy.
[2023-11-01 09:13] VITALS: BP 63/39; PULSE 64; RESP 13; TEMP 36.6; O2SAT 94
[2023-11-01 09:17] VITALS: BP 102/51; PULSE 63; RESP 15; O2SAT 97
[2023-11-01 09:22] VITALS: BP 97/47; PULSE 70; RESP 20; O2SAT 98
[2023-11-01 09:29] VITALS: BP 110/56; PULSE 68; RESP 14; TEMP 36.6; O2SAT 100
== END 2023-11-01 09:42 | disposition home or self-care (01) ==
PROVIDERS: PCP Nurse Practitioner; Referring Provider Internal Medicine Gastroenterology; Visit Provider Internal Medicine Gastroenterology
PROC: 0DJD8ZZ Inspection of Lower Intestinal Tract, Via Natural or Artificial Opening Endoscopic (ICD-10-PCS; CPT 45378; principal; 2023-11-01 09:00)
DX: Z12.11 Encounter for screening for malignant neoplasm of colon (principal); Z86.010 Personal history of colon polyps; K57.30 Diverticulosis of large intestine without perforation or abscess without bleeding
CPT/HCPCS: G0105; J2704